=== PATIENT | male | born 2000 | race Two or more races ===

== ENCOUNTER 2023-04-14 14:27 | Emergency (ER) | payer OTHER ==
[~2023-04-14] VITALS: Ht 175.3 cm; Wt 74.8 kg
== END 2023-04-14 17:54 | disposition home or self-care (01) ==
LOC: ER 14:27
DX: S69.81XA Other specified injuries of right wrist, hand and finger(s), initial encounter (principal); X58.XXXA Exposure to other specified factors, initial encounter; Y93.89 Activity, other specified; Y92.89 Other specified places as the place of occurrence of the external cause; Y99.8 Other external cause status

== ENCOUNTER 2025-06-25 19:45 | Emergency (ER) | payer OTHER ==
[~2025-06-25] VITALS: Ht 175.3 cm; Wt 70.3 kg
[2025-06-25] MEDS ORDERED: DIPHTH,PERTUSS(ACELL),TET VAC 0.5 ML VIAL IM ONE (21:00)
[2025-06-25] MEDS ORDERED: CEFTRIAXONE SODIUM 1,000 MG VIAL IM ONE (21:00)
[2025-06-25 21:17] LABS: BASO % 0.8 % (0.1-1.2); EOS # 0.32 (0.04-0.54); EOS % 3.8 % (0.7-7.0); LYMPH # 3.34 (1.18-3.74); LYMPH % 39.8 % (19.3-53.1); MEAN PLATELET VOLUME 11.40 fl (9.4-12.4); MONO # 0.67 (0.24-0.82); MONO % 8.0 % (4.7-12.5); NEUT # 3.98 (1.56-6.13); NEUT % 47.5 % (34.0-71.1); RED CELL DISTRIBUTION WIDTH 11.8 % (11.6-14.4)
[2025-06-25 21:32] LABS: COVID-19 AG NEGATIVE (NEGATIVE)
[2025-06-25] MEDS ORDERED: CEPHALEXIN500 MG PO (23:05)
== END 2025-06-25 23:51 | disposition home or self-care (01) ==
LOC: ER 19:45
PROVIDERS: Preventive Medicine Public Health & General Preventive Medicine
DX: S61.219A Laceration without foreign body of unspecified finger without damage to nail, initial encounter (principal); W45.8XXA Other foreign body or object entering through skin, initial encounter; Y93.89 Activity, other specified; Y92.69 Other specified industrial and construction area as the place of occurrence of the external cause; Y99.8 Other external cause status; Z20.822 Contact with and (suspected) exposure to COVID-19
CPT/HCPCS: 90471; 90714; 96372; 99282; J0696; J1670; J3490

== ENCOUNTER 2025-06-26 16:52 | Emergency (ER) | payer OTHER ==
[~2025-06-26] VITALS: Ht 175.3 cm; Wt 70.3 kg
[~2025-06-26 16:52] MED LIST: CEPHALEXIN500 MG PO
[2025-06-26 20:02] LABS: COVID-19 AG NEGATIVE (NEGATIVE)
== END 2025-06-26 20:46 | disposition home or self-care (01) ==
LOC: ER 16:52
PROVIDERS: General Practice
DX: J06.9 Acute upper respiratory infection, unspecified (principal); R05.9 Cough, unspecified; Z20.822 Contact with and (suspected) exposure to COVID-19